=== PATIENT | female | born 1965 | race Two or more races ===

== ENCOUNTER 2018-11-21 10:18 | Emergency (ER) | payer BC ==
--- NOTE | 2018-11-21 10:56 | EDPHY ---
General - Diagnostics Imaging: Discussed imaging studies w/ call center agent Radiologist - History Smoking Status: Never smoked Time Seen by Provider: 11/21/18 10:56 Narrative: CLINICAL IMPRESSION: Headache, elevated blood pressure ASSESSMENT/PLAN: Patient is a 53 year old female with no significant medical history who presents to the emergency department with headache and nausea. Patient is afebrile, nontoxic appearing and in no acute distress. NIH-O, her neurological exam is grossly normal with no focal deficit. The onset of her headache was slow and progressive not sudden or thunderclap in onset. There are no associated cranial nerve abnormalities and the patient has marked improvement after the aspirin she took prior to arrival. Laboratory studies were obtained, CBC and BMP unremarkable- no evidence of NEDA. CT head revealed a hyperdensity in the left temporal region, recommendation for MRI. 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 I considered the other potentially dangerous causes including meningitis, encephalitis, subarachnoid hemorrhage, CVA/TIA, mass and vertebral dissection however low clinical suspicion. She has had no recent trauma, seizure, change in vision, fever, or signs of meningismus. Her headache onset was shortly after increased stress, I suspect secondary to stress and underlying elevated blood pressure. There was no evidence of hypertensive emergency or urgency. She declined any pain medication in the ED. She understands the importance of follow-up regarding her elevated blood pressure. [place] from [place] however will be her for the next several weeks, I discussed following up with outpatient medicine while she is in [place]. Return precautions discussed. DIFFERENTIAL DX: Headache including but not limited to subarachnoid hemorrhage, migraine headache , tension headache and infectious causes such as meningitis, pharyngitis and sinusitis. ED COURSE: 1117: Discussed case with Dr. Hill 1225: Discussed case with radiologist, recommended MRI with and without for further evaluation. 1240: On repeat examination the patient still denies any need for pain or nausea medication. Findings of CT discussed with her and need for additional imaging to include MRI. Her neurological exam remained grossly normal with no focal deficit. 1400: Case discussed with Dr. George. MRI revealed left parietal developmental venous anomaly which is benign. There were no enhancing masses, hemorrhage or other acute abnormalities. 1425: Dr. Hill also evaluated this patient. On repeat exam the patient declines any need for pain medication. She is very reassured by her workup today. Her neurological exam is grossly normal with no focal deficit. She was still noted to have elevated blood pressure without evidence of hypertensive emergency. CHIEF COMPLAINT: Headache, nausea HPI: Patient is a 53-year-old female visiting from [place] who presents to the emergency department with headache and high blood pressure. Patient reports this morning she was having a very stressful conversation on the telephone, started to develop a posterior headache that escalated rather quickly. She denies it being a sudden or thunderclap onset. She describes it as throbbing in nature. She had some associated nausea, felt that she could throw up however did not. She denies any visual changes, dizziness, lightheadedness, focal weakness or ataxia. She denies any recent trauma or injury, she has had no fever. She has had headaches in the past however typically gets some in the front of her head. She went to urgent care where she was noted to have elevated blood pressure, she was sent here for further evaluation. She was given aspirin at urgent care, reports improvement of her headache and denies any further nausea. She denies any chest pain, shortness of breath or abdominal pain. She has had no urinary symptoms, bowel movements have been regular. PMH: Denies Family History: Not contributory Social History: Denies cigarette smoking, illicit drug use or frequent alcohol. REVIEW OF SYSTEMS: All other systems negative Constitutional: No fever, no chills, appetite change. Eyes: No discharge, vision change ENT: No sore throat, congestion, ear pain. Cardiovascular: No chest pain, no palpitations. Respiratory: No cough, no shortness of breath. Gastrointestinal: Nausea. No abdominal pain, no vomiting, diarrhea. Genitourinary: No hematuria, dysuria, flank pain. Musculoskeletal: No back pain, joint swelling, joint pain, myalgias. Skin: No rashes, color change. Neurological: Headache. No dizziness, weakness. PHYSICAL EXAM: General Appearance: Well-appearing, no acute distress and not toxic-appearing. HENT: Normocephalic, atraumatic. Bilateral external ears are normal. Bilateral tympanic membranes are normal with pearly mattson reflex. Nares are clear, mucosa is pink. Oropharynx is clear, uvula is midline. There is no tonsillar enlargement or exudate. The dentition is normal. Eyes: PERRLA, EOMI. Conjunctiva pink, no pallor or injection Neck: Supple, nontender, no lymphadenopathy, no midline pain, FROM, no meningismus. Respiratory: There are no retractions, lungs are clear to auscultation. Cardiac: Regular rate and rhythm, no murmurs or gallops. Gastrointestinal: Abdomen is soft, nontender, bowel sounds normal, no masses/ hernia, no rigidity, guarding or focal peritoneal findings. Neurological: MENTAL STATUS: Patient is alert and oriented to person, place, time, and situation. Recent and remote memory are intact. Attention and concentration are normal. Found knowledge is appropriate to level of education. Mood and affect normal. SPEECH: Language including naming, repetition, comprehension, and spontaneous speech are normal. No dysarthria or dysphagia. CRANIAL NERVES: II: Visual mccray are full to confrontation. Vision is grossly intact. III, IV, : Pupils are equal, round, reactive to light. Extraocular eye movements are full and without nystagmus. V: Facial sensation is intact to touch symmetrically in all 3 divisions. VII: Face is symmetric at rest with no asymmetry of grimace or evidence of facial weakness. VIII: Hearing is intact bilaterally to finger rub. IX, X: Palate is midline and elevates symmetrically with intact cough/gag. XI: Sternocleidomastoid and trapezius strength is normal. XII: Tongue protrudes midline without atrophy or fasciculations. MOTOR: Normal bulk and tone symmetrically in the upper and lower extremities. Upper extremities: shoulder abduction, elbow flexion, elbow extension, flexion of fingers and finger abduction strength 5/5 bilaterally. Lower extremities: hip flexion, knee flexion and extension, plantar and dorsiflexion of foot, and great toe extension strength 5/5 bilaterally. No pronator drift. SENSORY: Sensation is intact to light touch and symmetric in the UE's in LE's bilaterally. Romberg is negative. COORDINATION: Fine motor and rapid alternating movements are normal. Finger to nose is normal bilaterally. [id number] is normal bilaterally. No abnormal movements noted. There is no tremor at rest or with posture or action. GAIT/STATION: Casual, straightforward gait is normal. Patient can walk on toes and on heels. No gait instability. NIH-0 Skin: Warm, dry, no rashes, no nodules on palpation. Musculoskeletal: Extremities are symmetrical, full range of motion, no tenderness, deformity, swelling, or erythema. Psychiatric: Mood and affect are normal, there is no agitation. MEDICAL DECISION MAKING: Patient was seen independently. Secondary supervising physician at time of evaluation was Dr. Hill, he also evaluated this patient. Diagnosis: Headache. Summary: See Assessment and Plan for summary of ED visit Clinical lab tests: ordered / reviewed. Independent visualization of images, tracing, or specimens: Yes. Decision to obtain medical records or history from someone other than the patient: No Review / Summarize previous medical records: None available Discussed patient with another provider: Yes, Dr. Hill Patient Progress: Stable, discharge. (Kim Molina) Medical Decision Making: I did evaluate this patient independently. She is feeling much better after medication. We discussed her CT and MRI results. She and her sister who was on the phone had several questions about the vascular malformation. I answered them to the best of my ability. They felt reassured and patient was eager to go home. (Jhon Hill) - Objective Vital Signs: Initial Vital Signs Temperature (C) 36.8 C 11/21/18 10:22 Heart Rate 54 L 11/21/18 10:22 Respiratory Rate 18 11/21/18 10:22 Blood Pressure 139/101 H 11/21/18 10:22 O2 Sat (%) 96 11/21/18 10:22 O2 Delivery Mode Room Air Allergies/Adverse Reactions: No Known Allergies Allergy (Unverified 11/21/18 10:22) Home Medications: Medication Instructions Recorded NK [No Known Home Meds] 11/21/18 Laboratory Results: Laboratory Results 11/21/18 10:48 11/21/18 10:48 Medications Given: Discontinued Medications Ketorolac Tromethamine (Toradol) 30 mg IVP EDNOW ONE Stop: 11/21/18 14:00 Last Admin: 11/21/18 14:02 Dose: Not Given Departure - Departure Disposition: Home, Routine, Self-Care Clinical Impression: Headache, Elevated BP without diagnosis of hypertension Condition: Good Instructions: Acute Headache (ED) Additional Instructions: DISCHARGE INSTRUCTIONS FROM YOUR PROVIDER Thank you for visiting our emergency department today. Please keep in mind that discharge from the emergency department does not mean that there is nothing wrong - it simply means that we have not identified an emergency condition that requires further evaluation or treatment in the hospital. You should always plan to follow up with primary care for re-evaluation of your condition in the next 2-3 days. Your blood pressure was noted to be elevated in the emergency department, please check this on an outpatient basis and follow up with your primary care provider. For pain control: You may take Tylenol, I recommend 500-1000 mg every 6-8 hours as needed. Take with food and a full glass of water. Stop taking if this is upsetting you stomach. Do not exceed 4000 mg in a 24 hr period. You may also take ibuprofen, recommend 400 mg every 6 hr. Take with food and a full glass of water. Stop taking if this upsets your stomach. Do not exceed 2400 mg in a 24 hr period. The exact cause of your headache was not identified. The tests we have performed are essentially normal. Serious causes of headache are still possible , therefore, you should return immediately for worsening pain, visual changes, mental status changes, fever, vomiting or any other concerns. If the pain persists tomorrow, you should return for a recheck. In addition, you should follow up with your doctor for a recheck in 2-3 days. People present with illnesses and injuries in different ways, and it is always possible that we have missed something. Again, thank you for choosing our emergency department. We hope that you feel better. Referrals: Vanessa Grayson MD [Medical Doctor] - 2-3 days, call for appt.
[2018-11-21 11:16] LABS: PLATELET COUNT 268 10^3/uL (150-400)
[2018-11-21] MEDS ORDERED: GADOBUTROL 10 ML VIAL IVP ONE (13:22)
[2018-11-21] MEDS ORDERED: KETOROLAC 30 MG/1 ML SDV IVP ONE (13:59)
[2018-11-21 14:35] VITALS: BP 147/100
== END 2018-11-21 14:34 | disposition home or self-care (01) ==
DX: R51 Headache (principal); R03.0 Elevated blood-pressure reading, without diagnosis of hypertension
CPT/HCPCS: A9585